=== PATIENT | male | born 1990 | race Native Hawaiian/Other Pacific Islander ===

== ENCOUNTER → 2024-08-26 | Outpatient (CLI) | payer OTHER | LOC: M RAD 14:58 | PROVIDERS: ATTEND Physician Assistant Surgical | DX: M67.431 Ganglion, right wrist (principal) ==

== ENCOUNTER 2024-09-29 10:12 | Emergency (ER) | payer OTHER ==
[~2024-09-29] VITALS: Ht 177.8 cm; Wt 94.6 kg
[2024-09-29 11:32] LABS: BASO # 0.1 10^3/uL (0.0-0.2); BASO % 0.7 % (0.0-1.0); EOS # 0.1 10^3/uL (0.0-0.5); HEMATOCRIT 47.1 % (42.0-52.0); HEMOGLOBIN 16.1 g/dl (13.5-17.5); LYMPH # 1.5 10^3/uL (1.5-5.0); LYMPH % 18.5 % (24.0-44.0); MEAN CORPUSCULAR HEMOGLOBIN 29.7 pg (27.0-33.0); MEAN CORPUSCULAR HGB CONC 34.2 g/dl (32.0-36.5); MEAN CORPUSCULAR VOLUME 86.9 fl (80.0-96.0); MONO # 0.6 10^3/uL (0.0-0.8); MONO % 7.7 % (2.0-8.0); NEUTROPHILS % 71.9 % (36.0-66.0); PLATELET COUNT, AUTOMATED 310 10^3/uL (150-450); RED BLOOD COUNT 5.42 10^6/uL (4.30-6.10); WHITE BLOOD COUNT 8.3 10^3/uL (4.0-10.0)
[2024-09-29 11:51] LABS: ERYTHROCYTE SEDIMENTATION RATE 6 mm/hr (0-15)
[2024-09-29 11:54] LABS: MAGNESIUM LEVEL 2.1 MG/DL (1.8-2.4)
[2024-09-29 11:55] LABS: C REACTIVE PROTEIN QUANTITATIV < 0.50 MG/DL (<1.0)
[2024-09-29] MEDS: NS (Normal Saline) 0.9% 1,000 ML IV ONE (12:38)
[2024-09-29] MEDS: KETOROLAC 30 MG/ML 1ML VIAL IV ONE ×2 (12:38→15:26)
[2024-09-29] MEDS: ACETAMINOPHEN 500 MG TAB PO ONE (12:38)
[2024-09-29] MEDS: METOCLOPRAMIDE INJ 10MG/2ML VIAL IV ONE (12:38)
[2024-09-29] MEDS: diphenhydrAMINE 50MG/ML VIAL IV ONE (12:39)
[2024-09-29] MEDS: MAG SULF 1GM/100ML (MAG RUN) 1 GM in IV 1 EA IV ONE (15:26)
[2024-09-29 15:57] VITALS: BP 117/67; TEMP 97.8; O2SAT 95
== END 2024-09-29 16:25 | disposition home or self-care (01) ==
LOC: M ED 10:12
DX: G43.909 Migraine, unspecified, not intractable, without status migrainosus (principal)
CPT/HCPCS: 70450; 80047; 83735; 85025; 85652; 86140; 96361; 96365; 96375; 96376; 99284; J1100; J1200; J1885; J2765; J3475

== ENCOUNTER → 2025-04-09 | Outpatient (CLI) | payer OTHER ==
[~2025-04-09] MED LIST: ISOVUE-300 61% 100 ML VIAL As Ordered ONE; LIDOCAINE 1% MDV 20 ML VIAL As Ordered ONE; PROHANCE 279.3MG/ML 5ML VIAL As Ordered ONE
== END ==
LOC: M RAD 06:48
PROVIDERS: ATTEND Orthopaedic Surgery Hand Surgery
DX: M25.531 Pain in right wrist (principal); M65.831 Other synovitis and tenosynovitis, right forearm; M67.431 Ganglion, right wrist
CPT/HCPCS: 25246; 73223; 77002; A9576; Q9967

== ENCOUNTER 2025-06-15 06:14 | Day surgery (SDC) | payer OTHER ==
[~2025-06-15] VITALS: Ht 177.8 cm; Wt 101.0 kg
[~2025-06-15 06:14] MED LIST changes: +B-2100TA PO; +CYCL-707 PO; +D 50CAP2 PO; +DULO-34 PO; +DULO1CAP4 PO; +IBUP200C28 PO; -ISOVUE-300 61% 100 ML VIAL As Ordered ONE; -LIDOCAINE 1% MDV 20 ML VIAL As Ordered ONE; +MULTTAB61 PO; -PROHANCE 279.3MG/ML 5ML VIAL As Ordered ONE; +REFR0.1D; +RIZA10TA64 PO; +VITA100093 PO
[2025-06-15] MEDS ORDERED: LR 1,000 ML IV SCH ×2 (06:20→08:30)
[2025-06-15] MEDS ORDERED: ONDANSETRON 4MG 2ML VIAL As Ordered ONE (07:07)
[2025-06-15] MEDS ORDERED: MIDAZOLAM INJ 2 MG/2 ML VIAL As Ordered ONE (07:07)
[2025-06-15] MEDS ORDERED: ACETAMINOPHEN 1000MG/100ML IV BAG As Ordered ONE (07:07)
[2025-06-15] MEDS ORDERED: dexAMETHasone 4 MG/ML 1 ML VIAL As Ordered ONE (07:07)
[2025-06-15] MEDS ORDERED: LIDOCAINE 2% 100 MG/5 ML SDV (FOR ANES.) As Ordered ONE (07:07)
[2025-06-15] MEDS ORDERED: KETOROLAC 30 MG/ML 1 ML VIAL As Ordered ONE (07:15)
[2025-06-15] MEDS: ceFAZolin SOD 2 GM IV ONCE IV ONE (07:52)
[2025-06-15] MEDS ORDERED: HYDROMORPHONE HCL 0.5 MG/0.5 ML SYRINGE IV PRN (08:30)
[2025-06-15] MEDS: LIDOCAINE W/EPINEPHrine 1% 20 ML VIAL As Ordered ONE (08:33)
[2025-06-15 09:40] VITALS: BP 113/60; TEMP 97.3; O2SAT 96
== END 2025-06-15 10:09 | disposition home or self-care (01) ==
LOC: M SDC 06:14
PROVIDERS: ATTEND Orthopaedic Surgery Hand Surgery
DX: G56.21 Lesion of ulnar nerve, right upper limb (principal); G47.30 Sleep apnea, unspecified; G43.909 Migraine, unspecified, not intractable, without status migrainosus; Z79.899 Other long term (current) drug therapy; F43.10 Post-traumatic stress disorder, unspecified
CPT/HCPCS: 29999; J0131; J0665; J0688; J1100; J1885; J2250; J2405; J3010